=== PATIENT | female | born 1955 | race Caucasian/White ===

== ENCOUNTER → 2017-06-11 | Outpatient (CLI) | payer OTHER ==
--- NOTE | 2017-06-11 15:56 | RADRPT ---
PROCEDURE: Renal US. CLINICAL INDICATION: Microscopic hematuria. TECHNIQUE: Multiple sonographic images of the kidneys and urinary bladder were obtained. The imag es were reviewed on a PACS workstation. COMPARISON: No prior studies are available for comparison. FINDINGS: The right kidney measures 10.7 x 3.9 cm. The left kidney measures 10.5 x 4.5 cm. There is no renal mass. There is no hydronephrosis. There is no renal calculus. Renal parenchymal thickness is normal bilaterally. Echogenicity is normal bilaterally. The perirenal regions are normal with no fluid collection or mass. The urinary bladder is unremarkable. IMPRESSION: 1. Unremarkable renal ultrasound. RPTAT: QQ .Deric Mcallister MD, MD Date Time Electronically viewed and signed by .Deric Mcallister MD, MD on 06/11/2017 15:56 .R/
== END | disposition home or self-care (01) ==
LOC: U/S 14:44
PROVIDERS: ATTEND Internal Medicine
DX: R31.29 Other microscopic hematuria (principal)
CPT/HCPCS: 76775